=== PATIENT | female | born 1965 | race African-American/Black ===

== ENCOUNTER 2016-11-18 07:03 | Emergency (ER) | payer BC, OTHER ==
[~2016-11-18] VITALS: Ht 152.4 cm; Wt 81.7 kg
[~2016-11-18 07:03] MED LIST: BAYER CHEWABLE81 MG PO; DECONGESTANT NA15 ML NS; FLEXERIL PO; HORMONE REPLACEMENT; IBUPROFEN 600600 M1 PO; LIPITOR10 MG; MECLIZINE 25 MG25 M1 PO; MEDROLDOSEPACK PO; NAPROSYN500 MG PO; NORCO 5-325 TA1 EACH PO; VALIUM2 MG PO
[2016-11-18] MEDS ORDERED: PREDNISONE 20 M20 MG PO (08:36)
[2016-11-18] MEDS ORDERED: VALIUM5 MG PO (08:36)
[2016-11-18] MEDS ORDERED: NORCO 5-325 TA1 EACH PO (08:36)
[2016-11-18 08:50] VITALS: BP 137/82
== END 2016-11-18 08:51 | disposition home or self-care (01) ==
LOC: ER 07:03
DX: M43.6 Torticollis (principal); E78.00 Pure hypercholesterolemia, unspecified; Z90.710 Acquired absence of both cervix and uterus

== ENCOUNTER → 2017-01-24 | Outpatient (CLI) | payer BC, OTHER ==
[~2017-01-24] MED LIST changes: +PREDNISONE 20 M20 MG PO; +VALIUM5 MG PO
--- NOTE | ~2017-01-24 | EKG ---
[place] [address] [facility] [place] [address] ELECTROCARDIOGRAM REPORT Name: VALERIECLAY WISDOM Room #: REG CLI [facility]#: [id number] Admission: 01/24/17 Attend Phys: Last Arce MD Discharge: Date of : 65 Report #: [id number] THIS REPORT FOR: //name// [facility] Test Date: 2017-01-24 Test Time: 14:33:35 Pat Name: CLAY PADILLA Department: Room: Gender: F National Investigative Producer: Pranav PERKINS : 1965 Requested By: Last Arce Order Number: [id number] MD: Perry Jarquin Measurements Intervals [place] Rate: 62 P: 51 WI: 175 QRS: -6 QRSD: 107 T: 35 QT: 420 QTc: 427 Interpretive Statements Sinus rhythm Consider right atrial enlargement Right ventricular conduction delay Compared to ECG 07/27/2015 21:40:48 no significant change was found Electronically Signed On 01-25-2017 8:22:08 CDT by Perry Jarquin [email or web address] <ELECTRONICALLY SIGNED> By: Perry Jarquin MD, [facility] 01/25/1722 1433 143 [place] Jarquin MD, [facility] /EPI
[2017-01-24 14:25] LABS: CALCIUM 9.1 mg/dL (8.5-10.1); CREATININE 0.6 mg/dL (0.6-1.0)
== END ==
LOC: CV 13:49
PROVIDERS: Anesthesiology
DX: Z01.818 Encounter for other preprocedural examination (principal); I10 Essential (primary) hypertension

== ENCOUNTER 2017-03-30 18:34 | Emergency (ER) | payer BC, OTHER ==
[~2017-03-30] VITALS: Ht 170.2 cm; Wt 77.1 kg
[2017-03-30 18:34] VITALS: BP 136/98
[2017-03-30] MEDS ORDERED: TRIPLE ANTIBIO1 EACH TP (19:09)
[2017-03-30] MEDS ORDERED: IBUPROFEN 800800 M1 PO (19:10)
[2017-03-30] MEDS ORDERED: KEFLEX500 MG PO (19:10)
== END 2017-03-30 19:50 | disposition home or self-care (01) ==
LOC: ER 18:34
DX: T25.211A Burn of second degree of right ankle, initial encounter (principal); L03.115 Cellulitis of right lower limb; E78.00 Pure hypercholesterolemia, unspecified; Z90.710 Acquired absence of both cervix and uterus; X17.XXXA Contact with hot engines, machinery and tools, initial encounter; Y93.89 Activity, other specified; Y92.89 Other specified places as the place of occurrence of the external cause; Y99.8 Other external cause status

== ENCOUNTER 2017-08-27 19:53 | Emergency (ER) | payer BC, OTHER ==
[~2017-08-27] VITALS: Ht 149.9 cm; Wt 86.2 kg
[~2017-08-27 19:53] MED LIST changes: +IBUPROFEN 800800 M1 PO; +KEFLEX500 MG PO; +TRIPLE ANTIBIO1 EACH TP
[2017-08-27] MEDS ORDERED: KEFLEX500 M1 PO (21:16)
[2017-08-27] MEDS ORDERED: PREDNISONE 20 M20 MG PO (21:16)
[2017-08-27] MEDS ORDERED: DIFLUCAN200 MG PO (21:29)
== END 2017-08-27 21:35 | disposition home or self-care (01) ==
LOC: ER 19:53
DX: S70.362A Insect bite (nonvenomous), left thigh, initial encounter (principal); L03.116 Cellulitis of left lower limb; E78.00 Pure hypercholesterolemia, unspecified; W57.XXXA Bitten or stung by nonvenomous insect and other nonvenomous arthropods, initial encounter; Y93.89 Activity, other specified; Y92.89 Other specified places as the place of occurrence of the external cause; Y99.8 Other external cause status

== ENCOUNTER 2019-02-03 15:31 | Emergency (ER) | payer OTHER ==
[~2019-02-03] VITALS: Ht 152.4 cm; Wt 93.0 kg
[~2019-02-03 15:31] MED LIST changes: +DIFLUCAN200 MG PO; +KEFLEX500 M1 PO
[2019-02-03 16:07] LABS: ABSOLUTE NEUTROPHILS 2.7 thou/uL (1.4-8.2); EOSINOPHILS 1.4 % (0.0-3.0); HEMATOCRIT 39.1 % (37.0-47.0); HEMOGLOBIN 13.2 gm/dL (12.0-15.0); MCH 30.5 pg (26.0-34.0); MCHC 33.8 g/dL (28.0-37.0); MCV 90.2 fL (80.0-100.0); PLATELET COUNT 355 thou/uL (150-400); POLYS 46.6 % (36.0-66.0); RBC 4.34 mil/uL (4.20-5.00); RDW 13.5 % (10.5-14.5); WBC 5.9 thou/uL (4.0-11.0)
[2019-02-03 16:11] LABS: ANION GAP 7 mmol/L (7-16); BUN 10 mg/dL (7-18); CALCIUM 9.1 mg/dL (8.5-10.1); CHLORIDE 107 mmol/L (98-107); CO2 28 mmol/L (21-32); CREATININE 0.8 mg/dL (0.6-1.0); GLUCOSE 106 mg/dL (74-106); POTASSIUM 3.3 mmol/L (3.5-5.1); SODIUM 142 mmol/L (136-145)
[2019-02-03 16:19] LABS: TROPONIN-I <0.06 ng/mL (<0.06)
[2019-02-03 17:24] VITALS: BP 168/97
--- NOTE | 2019-02-04 07:36 | EKG ---
[place] [address] [facility] [place] [address] ELECTROCARDIOGRAM REPORT Name: VALERIECLAY WISDOM Room #: DEP [facility]#: [id number] ������������������ Admission: 02/03/19 ������������������ Attend Phys: Discharge: 02/03/19 ������������������ Date of : 65 Report #: [id number] ����������������������������������������������������������������� [id number] THIS REPORT FOR: //name// [facility] ED Test Date: 2019-02-03 Test Time: 15:35:07 Pat Name: CLAY PADILLA Department: Room: Gender: F Fbi Profiler: : 1965 Requested By: Alvin Willingham Order Number: [id number] MD: [place] Jarquin Measurements Intervals [place] Rate: 72 P: 55 [place]: 174 QRS: -4 QRSD: 107 T: 40 QT: 426 QTc: 467 Interpretive Statements Sinus rhythm RSR' in V1 or V2, right VCD Nonspecific T wave abnormality Compared to ECG 01/24/2017 14:33:35 Nonspecific T wave abnormality is now present Electronically Signed On 02-04-2019 7:36:12 CDT by [place] Jarquin [email or web address] ��������������������������������������������� <ELECTRONICALLY SIGNED> ���������������������������������������� By: [place] Jarquin MD, [facility] ��������������������������������������������� 02/04/19 0736 1535 1535 [place] Jarquin MD, [facility] /EPI
== END 2019-02-03 17:24 | disposition home or self-care (01) ==
LOC: ER 15:31
PROVIDERS: Emergency Medicine
DX: R07.89 Other chest pain (principal); M54.2 Cervicalgia; R06.02 Shortness of breath; I10 Essential (primary) hypertension; E78.00 Pure hypercholesterolemia, unspecified; Z90.710 Acquired absence of both cervix and uterus

== ENCOUNTER 2019-05-27 11:07 | Emergency (ER) | payer OTHER ==
[~2019-05-27] VITALS: Ht 152.4 cm; Wt 90.7 kg
[2019-05-27 12:59] LABS: ABSOLUTE NEUTROPHILS 3.3 thou/uL (1.4-8.2); BASOPHILS 0.7 % (0.0-2.0); EOSINOPHILS 0.8 % (0.0-3.0); HEMATOCRIT 39.9 % (37.0-47.0); HEMOGLOBIN 13.2 gm/dL (12.0-15.0); LYMPHOCYTES 37.6 % (24.0-44.0); MCH 30.1 pg (26.0-34.0); MCHC 33.1 g/dL (28.0-37.0); MONOCYTES 6.4 % (1.0-8.0); PLATELET COUNT 355 thou/uL (150-400); POLYS 54.5 % (36.0-66.0); RBC 4.39 mil/uL (4.20-5.00); RDW 13.3 % (10.5-14.5)
[2019-05-27 13:08] LABS: ANION GAP 7 mmol/L (7-16); BUN 11 mg/dL (7-18); CALCIUM 9.1 mg/dL (8.5-10.1); CHLORIDE 104 mmol/L (98-107); CO2 30 mmol/L (21-32); CREATININE 0.7 mg/dL (0.6-1.0); GLUCOSE 96 mg/dL (74-106); POTASSIUM 3.6 mmol/L (3.5-5.1); SODIUM 141 mmol/L (136-145)
[2019-05-27 13:18] LABS: ALBUMIN 3.9 g/dL (3.4-5.0); SGOT 19 U/L (15-37); SGPT 22 U/L (30-65); TOTAL BILIRUBIN 0.3 mg/dL (<0.1-1.0); TOTAL PROTEIN 7.7 g/dL (6.4-8.2); TROPONIN-I <0.06 ng/mL (<0.06)
--- NOTE | 2019-05-27 15:46 | EKG ---
[place] [address] [facility] [place] [address] [place] [address] ELECTROCARDIOGRAM REPORT Name: CLAY PADILLA Room #: REG [facility]#: [id number] Admission: 05/27/19 Attend Phys: Discharge: Date of : 65 Report #: [id number] THIS REPORT FOR: //name// [facility] ED Test Date: 2019-05-27 Test Time: 11:54:10 Pat Name: CLAY PADILLA Department: Room: Gender: F Coke Crusher Operator: CALISTA : 1965 Requested By: Vlad Ibarra Order Number: [id number] MD: Jose John Measurements Intervals [place] Rate: 62 P: 59 AR: 171 QRS: -7 QRSD: 103 T: 45 QT: 405 QTc: 412 Interpretive Statements Sinus rhythm Biatrial enlargement ST elev, probable normal early repol pattern Baseline wander in lead(s) II,III,aVF Compared to ECG 02/03/2019 15:35:07 Electronically Signed On 05-27-2019 15:45:57 CDT by Jose John [email or web address] <ELECTRONICALLY SIGNED> By: Jose John MD 05/27/19 1545 1154 1154 Jose John MD /EPI
[2019-05-27 17:21] VITALS: BP 122/87
== END 2019-05-27 17:35 | disposition home or self-care (01) ==
LOC: ER 11:07
PROVIDERS: Physician Assistant
DX: E07.9 Disorder of thyroid, unspecified (principal); J98.59 Other diseases of mediastinum, not elsewhere classified; R07.0 Pain in throat; R49.9 Unspecified voice and resonance disorder; E78.00 Pure hypercholesterolemia, unspecified; Z90.710 Acquired absence of both cervix and uterus

== ENCOUNTER → 2019-06-02 | Outpatient (CLI) | payer OTHER ==
[~2019-06-02] MED LIST changes: +LIPITOR40 MG PO; +LISINOPRIL-HCT1 EACH PO; +ULTRAM 50MG TAB50 MG PO
--- NOTE | 2019-06-06 11:07 | PATH ---
[facility] [place] [address] PATHOLOGY RPT PROCEDURE Name: CLAY PADILLA Room #: REG [facility]..#: [id number] Admission: 06/02/19 Date of : 65 Discharge: Report #: [id number] Path Case #: [id number] Note [facility] Accession Number: [id number] TESTS RESULT FLAG UNITS REF RANGE LAB Clinician Provided Cytology Information No. of containers..01 Other (Miscellaneous) Source: RT THYROID DIAGNOSIS: 02 RIGHT THYROID, FINE NEEDLE ASPIRATION NEGATIVE FOR MALIGNANT EPITHELIAL CELLS. BETHESDA CATEGORY II. SPECIMEN CONSISTS OF ABUNDANT GROUPS OF FOLLICULAR CELLS,FEW HEMOSIDERIN-LADEN MACROPHAGES AND SCANT COLLOID. THE PATTERN IS COMPATIBLE WITH AN ADENOMATOID NODULE. THIS INTERPRETATION INCLUDES EVALUATION OF A CELL BLOCK. NEGATIVE FOR NUCLEAR FEATURES OF PAPILLARY THYROID CARCINOMA. Comment: Examination of the smears shows a moderately cellular aspirate with numerous macrofollicles, scant colloid and a few macrophages. Occasional groups of lymphocytes are noted as well. Overall features are suggestive of an adenomatoid nodule; differential diagnosis includes a macrofollicular adenoma. Please note sample may not be regional sales representative. Correlate clinically and follow-up as indicated. Dr. Yue Ochoa has seen regional sales representative slides of this case and concurs with my diagnosis. Pathologist ICD10: 02 E04.1 Signed out by: Elizabeth Conti MD, Pathologist NPI- [id number] Performed by: Geraldine Carlin, Solidworks Mechanical Designer ([facility]) Ramírez Luo, Solidworks Mechanical Designer ([facility]) Gross description: 01 18ML, RED, CLOUDY /LCS 08/19/1840 0000 Local FLAG LEGEND: L-Low Normal,H-High Normal,LL-Alert Low,HH-Alert High <-Panic Low,>-Panic High,A-Abnormal,AA-Critical Abnormal Performed at: [facility] [address] [place] [address] Yobani Gracia MD, [address] [address] PATHOLOGY RPT PROCEDURE Name: CLAY PADILLA Room #: REG JORGE [facility]#: [id number] Admission: 06/02/19 Date of : 65 Discharge: Report #: [id number] Path Case #: [id number] 02 [facility] [place] [address] [facility], [place] [address] Elizabeth Conti MD, Specimen Comment: A courtesy copy of this report has been sent to Specimen Comment: [phone], . Specimen Comment: Report sent to / DR LUCIA Performed at: 01 [facility] [place] [id number] [facility] [address], [place], [place] [id number] MD Yobani Gracia MD Phone: [phone]
--- NOTE | 2019-06-26 09:10 | PATH ---
[facility] [place] [address] PATHOLOGY RPT PROCEDURE Name: CLAY PADILLA Room #: REG JORGE Smith.#: [id number] Admission: 06/02/19 Date of : 65 Discharge: Report #: [id number] Path Case #: [id number] Note [facility] Accession Number: [id number] TESTS RESULT FLAG UNITS REF RANGE LAB Source: THYROID DIAGNOSIS: 02 LEFT THYROID, FINE NEEDLE ASPIRATION INCONCLUSIVE. BETHESDA CATEGORY III. FOLLICULAR LESION OF UNDETERMINED SIGNIFICANCE. SPECIMEN CONSISTS OF ABUNDANT FOLLICULAR CELLS (FEW WITH HURTHLE CELL FEATURES) AND WITH SCANT DENSE COLLOID. THE DIFFERENTIAL DIAGNOSIS INCLUDES CELLULAR ADENOMATOID NODULE VERSUS A FOLLICULAR NEOPLASM. THIS INTERPRETATION INCLUDES EVALUATION OF A CELL BLOCK. NEGATIVE FOR NUCLEAR FEATURES OF PAPILLARY THYROID CARCINOMA. Comment: Examination shows numerous groups of thyroid follicular cells in macrofollicles, few microfollicles, abundant hemosiderin laden macrophages along with dense colloid. In addition, there a several follicular cells with Hurthle cell features. Overall, findings maybe suggestive of an adenomatoid nodule with or without Elizabeth's thyroiditis or a partially sampled follicular neoplasm or a Hurthle cell neoplasm. Nuclear features of papillary thyroid carcinoma are not seen. The RNA retain vial is sent for molecular analysis and the results of this will be issued in an addendum. Please note sample may not be entirely sales representative electric service; correlate clinically and follow-up as indicated. This case was coreviewed by Dr. Yue Ochoa who concurs with my diagnosis. Pathologist ICD10: 02 R89.6 Addendum: 02 Special studies report received from [employer] [address] [place] [address], on case [id number], labeled with their number [id number], dated 06/25/2019. . RESULTS SUMMARY Nodule Cytopathology ThyGeNEXT ThyraMIR Left Thyroid FNA AUS/FLUS (B-III) No mutations Negative Detected . INTERPRETATION AND RISK ASSESSMENT Left Thyroid FNA Cytology Dx B-III ThyGeNEXT No Mutations Detected ThyraMIR Negative 5% Risk of Malignancy . *Risk assessment is based on disease prevalence [place] [address] PATHOLOGY RPT PROCEDURE Name: CLAY PADILLA Room #: REG CL[facility]com [facility]#: [id number] Admission: 06/02/19 Date of : 65 Discharge: Report #: [id number] Path Case #: [id number] diagnosis, mutational changes, microRNA expression, clinical experience, submitted manuscript and associated wire photo operator news/platform presentation "The Utility of Combined Mutations and microRNA Expression Profiling in Assessing Cancer Risk in Thyroid Nodules", LES Annual Meeting, May 2017 in addition to clinical validation(1)(See Test Result Interpretation section) . TEST RESULT INTERPRETATION . Left Thyroid FNA . Nodule is very highly likely benign. . Thyroid nodules showing [place] Diagnostic Category III (AUS/FLUS) or [place] Diagnostic Category IV (FN/SFN) with negative ThyGeNEXT and negative ThyraMIR status are highly likely to be benign (91-97% likelihood of being benign) (1,2). . Because thyroid nodular disease can contain multifocal areas of heterogeneous pathology, sampling variation may occasionally result in under diagnosis of existing pathology. All decision factors, including ultrasound results, nodule size, and patient history need to be taken into account when determining treatment. . 1. Lala Adames et al, Molecular testing of David, mRNA and DNA on fine needle aspiration improves the preoperative diagnosis of thyroid nodules with indeterminate cytology, Journal of Clinical Endocrinology and Metabolism, 100(0), February 2015, [id number] 2. Nestor oBlanos and Dayanara Steinberg, The utility of combined mutation analysis and microRNA classification in reclassifying cancer risk of cytologically indeterminate thyroid nodules, Diagnostic Cytopathology. 2018:1-7 . . REGULATORY The ThyGeNEXT Thyroid Oncogene Panel provides PCR-based enrichment from fine-needle aspiration biopsies of thyroid nodules and next-generation sequencing (NGS) DNA and RNA analysis. The DNA analysis interrogates 10 genes relevant to thyroid carcinoma, including BRAF, TERT, ALK, RET, PTEN, HRAS, KRAS, NRAS, GNAS, PIK3CA, and 38 RNA fusion transcripts including PAX8/PPARgamma, RET/PTC, and various fusion partners of ALK, RET, BRAF, NTRK, and THADA. Duplicate PCR enrichment was performed using custom oligonucleotide primers with analysis on a MiSeq platform (StyleJam). The analytical sensitivity of this assay is at least 3% for mutant DNA and at least 5% of RNA translocations in a background of wild-type genomic DNA and RNA, respectively. The reporting range is at least 5% for DNA variants, with the exception that the reporting range for BRAF V600E mutation is at least 3%. For the ThyGeNEXT panel, the overall, clinical sensitivity for this analysis is 63% and the specificity is 84% in cases [address] [address] PATHOLOGY RPT PROCEDURE Name: CLAY PADILLA Room #: [facility] [id number] Admission: 06/02/19 Date of : 65 Discharge: Report #: [id number] Path Case #: [id number] with indeterminant cytology. . The ThyraMIR David Medical Office Secretary is a microRNA (David) based discriminator of benign versus malignant disease using mathematical algorithm of 10 specific microRNAs trained and validated using thyroid nodules with known outcome. For the needle aspirates in preservative solution, this assay requires a minimum of RNA equivalent to that for ThyGenX (1000 relative fluorescent units of housekeeping RNA genes). Discrimination can be affected by admixture with blood and normal RNA sources and has been shown to be operative within the range of admixture typically encountered in sampling of thyroid nodule disease. The combined testing platform of ThyGenX with ThyraMIR has a clinical sensitivity of 89% and specificity of 85% for cases with indeterminate cytology diagnosis. (The Journal of Clinical Endocrinology and Metabolism, Volume 100, Issue 7, 17 February 2015, Pages 3181-6618) Laboratory analytical validation of ThyGeNEXT confirmed 100% agreement (95% CI: 99.5 to 100%) for the 5 genes (BRAF, HRAS, KRAS, NRAS, PIK3CA) and 6 fusions (PAX8-PPARG and RET-PTC) interrogated by ThyGenX. Based on this comparison, the performance of ThyGeNEXT is expected to be similar to ThyGenX; however, ThyGeNEXT will provide additional information on gene alterations strongly associated with aggressive forms of differentiated thyroid cancer and/or poor outcome. . Testing performed on material created for microscopic evaluation (cytology slide smears, cell block, or thin prep), depending on cellularity and extractable nuclei acid, may have similar or slightly lower test performance characteristics to that stated above. . . DISCLAIMER: This test was developed and its performance characteristics determined by [facility]. It has not been cleared or approved by the FDA. The laboratory is regulated under CLI as qualified to perform high-complexity testing and is used for clinical purposes. A negative result does not indicate a benign result. This test detects only the mutations listed above, which account for >80% of thyroid cancers. Other, rare mutations, that may be indicative of cancer may not be detected by this test. In addition, about 30% of thyroid cancers have no known genetic alterations and/or mutations. . Interpreted By Electronically verified by Olivia Ontiveros MD Assistant Reading Teacher Date: 14:25:30 EST Olivia Ontiveros MD Pathologist . A complete copy of the report is on file. . [address] [address] PATHOLOGY RPT PROCEDURE Name: KANNANSABINOCLAYDennys WISDOM Room #: REG [facility] [id number] Admission: 06/02/19 Date of : 65 Discharge: Report #: [id number] Path Case #: [id number] Professional and Technical services performed by [employer] [address] [place] [place] [address]. . (IUV:amj 06/25/2019) . AZJ/06/25/2019 Addendum Electronically Signed by Elizabeth Conti MD, Pathologist Signed out by: 02 Elizabeth Conti MD, Pathologist NPI- [id number] Performed by: 01 Geraldine Carlin, Speech Pathologist ([facility]) Ramírez Luo, Speech Pathologist ([facility]) Gross description: 01 19ML, RED, CLOUDY /LCS 08/19/1840 0000 Local FLAG LEGEND: L-Low Normal,H-High Normal,LL-Alert Low,HH-Alert High <-Panic Low,>-Panic High,A-Abnormal,AA-Critical Abnormal Performed at: [address] [place] [address] Yobani Gracia MD, [address] [address] Elizabeth Conti MD, Performed at: [address] [facility], [place], [place] [id number] MD Yobani Gracia MD Phone: [phone]
== END | disposition home or self-care (01) ==
LOC: ULTRA 10:01
DX: E04.1 Nontoxic single thyroid nodule (principal); R89.6 Abnormal cytological findings in specimens from other organs, systems and tissues; Z98.890 Other specified postprocedural states; Z79.899 Other long term (current) drug therapy

== ENCOUNTER 2019-06-03 11:28 | Emergency (ER) | payer OTHER ==
[~2019-06-03] VITALS: Ht 152.4 cm; Wt 97.5 kg
[~2019-06-03 11:28] MED LIST changes: -LIPITOR40 MG PO; -LISINOPRIL-HCT1 EACH PO; -ULTRAM 50MG TAB50 MG PO
[2019-06-03] MEDS ORDERED: LISINOPRIL-HCT1 EACH PO (11:45)
[2019-06-03] MEDS ORDERED: LIPITOR40 MG PO (11:45)
[2019-06-03 12:44] LABS: ABSOLUTE NEUTROPHILS 2.4 thou/uL (1.4-8.2); BASOPHILS 0.9 % (0.0-2.0); HEMATOCRIT 38.4 % (37.0-47.0); HEMOGLOBIN 12.7 gm/dL (12.0-15.0); MCH 30.4 pg (26.0-34.0); MONOCYTES 5.8 % (1.0-8.0); PLATELET COUNT 349 thou/uL (150-400); POLYS 47.3 % (36.0-66.0); RBC 4.17 mil/uL (4.20-5.00); RDW 12.8 % (10.5-14.5)
[2019-06-03 12:44] LABS: URINE BILIRUBIN NEGATIVE (Negative); URINE BLOOD NEGATIVE (Negative); URINE CLARITY CLEAR; URINE COLOR YELLOW; URINE GLUCOSE-RANDOM* NEGATIVE (Negative); URINE KETONES NEGATIVE (Negative); URINE LEUKOCYTES-REFLEX NEGATIVE (Negative); URINE NITRITE-REFLEX NEGATIVE (Negative); URINE PROTEIN (DIPSTICK) NEGATIVE (Negative); URINE UROBILINOGEN 0.2 E.U./dl (0.2-1.0)
[2019-06-03 12:53] LABS: CALCIUM 9.4 mg/dL (8.5-10.1); CREATININE 0.7 mg/dL (0.6-1.0); POTASSIUM 3.6 mmol/L (3.5-5.1)
[2019-06-03 13:00] LABS: ALBUMIN 3.8 g/dL (3.4-5.0); TOTAL BILIRUBIN 0.3 mg/dL (<0.1-1.0); TOTAL PROTEIN 7.6 g/dL (6.4-8.2)
[2019-06-03] MEDS ORDERED: ULTRAM 50MG TAB50 MG PO (16:30)
[2019-06-03 16:42] VITALS: BP 150/77
== END 2019-06-03 16:53 | disposition home or self-care (01) ==
LOC: ER 11:28
PROVIDERS: Emergency Medicine
DX: R10.2 Pelvic and perineal pain (principal); R93.5 Abnormal findings on diagnostic imaging of other abdominal regions, including retroperitoneum; E78.00 Pure hypercholesterolemia, unspecified; Z90.710 Acquired absence of both cervix and uterus

== ENCOUNTER 2019-08-05 17:22 | Emergency (ER) | payer OTHER ==
[~2019-08-05] VITALS: Ht 152.4 cm; Wt 86.2 kg
[~2019-08-05 17:22] MED LIST changes: +LIPITOR40 MG PO; +LISINOPRIL-HCT1 EACH PO; +ULTRAM 50MG TAB50 MG PO
[2019-08-05 17:44] VITALS: BP 145/82
[2019-08-05] MEDS ORDERED: SYNTHROID125 MC1 PO (17:50)
[2019-08-05] MEDS ORDERED: ULTRAM 50MG TAB50 MG PO (18:33)
== END 2019-08-05 19:03 | disposition home or self-care (01) ==
LOC: ER 17:22
DX: S86.812A Strain of other muscle(s) and tendon(s) at lower leg level, left leg, initial encounter (principal); I10 Essential (primary) hypertension; E78.00 Pure hypercholesterolemia, unspecified; Z90.710 Acquired absence of both cervix and uterus; Z90.49 Acquired absence of other specified parts of digestive tract; X50.9XXA Other and unspecified overexertion or strenuous movements or postures, initial encounter; Y93.89 Activity, other specified; Y92.89 Other specified places as the place of occurrence of the external cause; Y99.8 Other external cause status

== ENCOUNTER 2019-09-16 05:48 | Day surgery (SDC) | payer OTHER ==
[~2019-09-16] VITALS: Ht 5 cm; Wt 98.0 kg
--- NOTE | ~2019-09-16 | O ---
[facility] [place] [address] OPERATIVE REPORT Name: VALERIECLAY Room #: DEP [facility]#: [id number] Admission: 09/16/19 Attend Phys: Hallie Smith DO Discharge: 09/16/19 Date of : 65 Report #: [id number] THIS REPORT FOR: //name// CC: Hallie Mayes DATE OF SERVICE: 09/16/2019 PREOPERATIVE DIAGNOSES: 1. Pelvic pain. 2. Prior hysterectomy. POSTOPERATIVE DIAGNOSES: 1. Pelvic pain. 2. Prior hysterectomy. 3. Abdominal adhesions. OPERATIVE PROCEDURE: Diagnostic laparoscopy. SURGEON: Dr. Hallie Smith. ANESTHESIA: General. INTRAVENOUS FLUIDS: 1000 mL. URINE OUTPUT: 300 mL. ESTIMATED BLOOD LOSS: 1 mL. COMPLICATIONS: None. DESCRIPTION OF PROCEDURE: The patient was taken to the operating room where general anesthesia was administered and found to be adequate. She was then prepped and draped in normal sterile fashion in supine position. A Ann catheter was placed in the patient's bladder. The bladder was drained of urine. A 5 mm infraumbilical incision was made with a scalpel. A 5 mm trocar was passed through this incision under direct visualization of laparoscope. The pneumoperitoneum was allowed to accumulate. After approximately 3 liters of carbon dioxide gas was infused and the patient was placed in slight Trendelenburg position, a survey of the patient's abdomen revealed bowel adhered to the patient's anterior abdominal wall directly to the right of the trocar, thick omental adhesions to the abdominal wall to the left of the trocar as well as into the patient's pelvic region. Due to adhesions, there was inability to place further trocar safely to perform a salpingo-oophorectomy on the patient. The ovaries were unable to be visualized at all. Therefore, the procedure was paused and I exited the room to talk with the patient's family. This discussion [facility] [address] [place] [address] OPERATIVE REPORT Name: CLAY PADILLA Room #: DEP [facility]..#: [id number] Admission: 09/16/19 Attend Phys: Hallie Smith DO Discharge: 09/16/19 Date of : 65 Report #: [id number] involved possible laparotomy versus further consultation with General Surgery at a later date to proceed with possible future surgery. The family elected to hold on any type of open procedure and allow time for patient to possibly discuss further surgery with General Surgery as well as myself should her ovaries desire to be removed at that time. I returned to the operating room where sterile protocol was again resumed. Pictures were obtained. The pneumoperitoneum was then allowed to escape. The trocar was removed from the patient's abdomen along with the camera and the incision was closed with 4-0 Monocryl in an interrupted fashion. The Ann was removed from the patient's bladder. The patient tolerated the procedure well. Sponge, lap and needle counts were reported as correct and the patient was then taken to the recovery room in stable condition. By: 0917 1017 Hallie Smith DO /nt
[~2019-09-16 05:48] MED LIST changes: +OYSCO 500+D TA1 EACH PO; +PANTOPRAZOLE SO40 M1 PO; +SYNTHROID125 MC1 PO; +SYNTHROID150 MCG PO
[2019-09-16 06:49] LABS: CALCIUM 8.5 mg/dL (8.5-10.1); CREATININE 0.8 mg/dL (0.6-1.0); POTASSIUM 3.1 mmol/L (3.5-5.1)
[2019-09-16 07:05] VITALS: BP 129/82
[2019-09-16] MEDS ORDERED: IBUPROFEN 600600 M1 PO (08:45)
[2019-09-16] MEDS ORDERED: NORCO 5-325 TA1 EAC1 PO (08:45)
[2019-09-16 09:13] VITALS: BP 129/82
== END 2019-09-16 09:35 | disposition home or self-care (01) ==
LOC: OR 05:48 → TBA 05:50 → OR 09:35
PROVIDERS: Obstetrics & Gynecology
DX: R10.2 Pelvic and perineal pain (principal); K66.0 Peritoneal adhesions (postprocedural) (postinfection); I10 Essential (primary) hypertension; E78.5 Hyperlipidemia, unspecified; E78.00 Pure hypercholesterolemia, unspecified; E07.9 Disorder of thyroid, unspecified; K21.9 Gastro-esophageal reflux disease without esophagitis; Z98.890 Other specified postprocedural states; Z79.899 Other long term (current) drug therapy; Z90.710 Acquired absence of both cervix and uterus
CPT/HCPCS: 50010; 50101; 50249; 50386; 50400; 50455; 50555; 50558; 50962; 51687; 53307; 54118; 56526; 62110; 62900; 65130; 70005

== ENCOUNTER → 2020-04-02 | Outpatient (CLI) | payer OTHER ==
[~2020-04-02] MED LIST changes: +NORCO 5-325 TA1 EAC1 PO
== END ==
LOC: CAT 10:57
PROVIDERS: ATTEND Neuromusculoskeletal Medicine & OMM
DX: Z13.6 Encounter for screening for cardiovascular disorders (principal); I25.10 Atherosclerotic heart disease of native coronary artery without angina pectoris; E78.00 Pure hypercholesterolemia, unspecified

== ENCOUNTER 2020-04-21 21:31 | Emergency (ER) | payer OTHER ==
[~2020-04-21] VITALS: Ht 152.4 cm; Wt 93.0 kg
[2020-04-21] MEDS ORDERED: REPATHA PU420 MG/3.5 SUBQ (22:01)
[2020-04-22 00:33] LABS: CALCIUM 8.5 mg/dL (8.5-10.1); CREATININE 0.8 mg/dL (0.6-1.0); POTASSIUM 3.7 mmol/L (3.5-5.1)
[2020-04-22 00:39] LABS: ABSOLUTE NEUTROPHILS 4.4 thou/uL (1.4-8.2); BASOPHILS 0.2 % (0.0-2.0); HEMATOCRIT 36.2 % (37.0-47.0); HEMOGLOBIN 12.2 gm/dL (12.0-15.0); LYMPHOCYTES 18.3 % (24.0-44.0); MCH 30.9 pg (26.0-34.0); MCHC 33.8 g/dL (28.0-37.0); MCV 91.4 fL (80.0-100.0); MONOCYTES 6.3 % (1.0-8.0); PLATELET COUNT 313 thou/uL (150-400); POLYS 75.2 % (36.0-66.0); RBC 3.96 mil/uL (4.20-5.00); RDW 13.3 % (10.5-14.5); WBC 5.8 thou/uL (4.0-11.0)
[2020-04-22 00:48] LABS: URINE BILIRUBIN NEGATIVE (Negative); URINE BLOOD TRACE (Negative); URINE CLARITY CLEAR; URINE COLOR YELLOW; URINE GLUCOSE-RANDOM* NEGATIVE (Negative); URINE KETONES NEGATIVE (Negative); URINE LEUKOCYTES-REFLEX NEGATIVE (Negative); URINE NITRITE-REFLEX NEGATIVE (Negative); URINE PROTEIN (DIPSTICK) NEGATIVE (Negative); URINE SPECIFIC GRAVITY 1.015 (1.005-1.035); URINE UROBILINOGEN 0.2 E.U./dl (0.2-1.0)
[2020-04-22 01:44] VITALS: BP 132/82
== END 2020-04-22 01:50 | disposition home or self-care (01) ==
LOC: ER 21:31
PROVIDERS: Emergency Medicine
DX: R50.9 Fever, unspecified (principal); R53.83 Other fatigue; R51 Headache; H92.01 Otalgia, right ear; I10 Essential (primary) hypertension; E78.5 Hyperlipidemia, unspecified; Z90.89 Acquired absence of other organs; Z79.899 Other long term (current) drug therapy; Z20.828 Contact with and (suspected) exposure to other viral communicable diseases

== ENCOUNTER 2020-05-14 17:22 | Emergency (ER) | payer OTHER ==
[~2020-05-14] VITALS: Ht 152.4 cm; Wt 90.7 kg
[~2020-05-14 17:22] MED LIST changes: +REPATHA PU420 MG/3.5 SUBQ
[2020-05-14 20:39] VITALS: BP 156/83
== END 2020-05-14 20:39 | disposition home or self-care (01) ==
LOC: ER 17:22
DX: T78.40XA Allergy, unspecified, initial encounter (principal); I10 Essential (primary) hypertension; E78.5 Hyperlipidemia, unspecified; Z90.89 Acquired absence of other organs; Z79.899 Other long term (current) drug therapy; Y92.89 Other specified places as the place of occurrence of the external cause

== ENCOUNTER → 2020-05-20 | Outpatient (CLI) | payer OTHER | LOC: SJCVCIMAG 09:39 | PROVIDERS: ATTEND Internal Medicine | DX: I10 Essential (primary) hypertension (principal); R00.0 Tachycardia, unspecified; E78.00 Pure hypercholesterolemia, unspecified ==

== ENCOUNTER 2020-07-07 18:27 | Emergency (ER) | payer OTHER ==
[~2020-07-07] VITALS: Ht 152.4 cm; Wt 90.7 kg
[2020-07-07] MEDS ORDERED: NORVASC5 M1 PO (19:35)
[2020-07-07] MEDS ORDERED: hormone replacement SUBLING (19:36)
[2020-07-07 19:44] LABS: HEMOGLOBIN 12.4 gm/dL (12.0-15.0); MCH 30.7 pg (26.0-34.0); MCHC 33.6 g/dL (28.0-37.0); MCV 91.6 fL (80.0-100.0); PLATELET COUNT 364 thou/uL (150-400); RBC 4.04 mil/uL (4.20-5.00); RDW 13.3 % (10.5-14.5)
[2020-07-07 19:54] LABS: ANION GAP 8 mmol/L (7-16); BUN 11 mg/dL (7-18); CALCIUM 8.7 mg/dL (8.5-10.1); CHLORIDE 101 mmol/L (98-107); CO2 27 mmol/L (21-32); CREATININE 0.8 mg/dL (0.6-1.0); GLUCOSE 95 mg/dL (74-106); SODIUM 136 mmol/L (136-145)
[2020-07-07 20:04] LABS: ALBUMIN 3.7 g/dL (3.4-5.0); POTASSIUM 4.5 mmol/L (3.5-5.1); SGOT 52 U/L (15-37); SGPT 30 U/L (30-65); TOTAL BILIRUBIN 0.5 mg/dL (0.2-1.0); TOTAL PROTEIN 7.9 g/dL (6.4-8.2); TROPONIN-I <0.06 ng/mL (<0.06)
[2020-07-07 20:10] LABS: ABSOLUTE NEUTROPHILS 3.2 thou/uL (1.4-8.2)
[2020-07-07] MEDS ORDERED: GUAIFEN-CODEINE10 ML PO (22:53)
[2020-07-07 23:05] VITALS: BP 155/100
--- NOTE | 2020-07-08 07:27 | EKG ---
[facility] [place] [address] ELECTROCARDIOGRAM REPORT Name: MATTHEWSHARONCLAY Room #: DEP [facility]#: [id number] Admission: 07/07/20 Attend Phys: Discharge: 07/07/20 Date of : 65 Report #: [id number] THIS REPORT FOR: cc: Austyn Mayes Steven F. DO Santiago, Patrick MD [facility] THIS REPORT FOR: //name// [facility] ED Test Date: 2020-07-07 Test Time: 18:39:39 Pat Name: CLAY PADILLA Department: Room: Gender: F Pharmacology Professor: IND[place] : 1965 Requested By: Fidel Luis Order Number: [id number] MD: Declan Frost Measurements Intervals [place] Rate: 79 P: 58 [place]: 164 QRS: 8 QRSD: 98 T: 67 QT: 380 QTc: 436 Interpretive Statements Sinus rhythm LAE, consider biatrial enlargement RSR' in V1 or V2, right VCD or RVH Compared to ECG 05/27/2019 11:54:10 Right ventricular hypertrophy now present RSR' in V1 or V2 now present Electronically Signed On 07-08-2020 7:26:54 DEPARTMENT CLERK by Declan Frost [email or web address] <ELECTRONICALLY SIGNED> By: Declan Frost MD, FACC 07/08/20 0726 38 38 Declan Frost MD, FAC /EPI
== END 2020-07-07 23:25 | disposition home or self-care (01) ==
LOC: ER 18:27
PROVIDERS: Emergency Medicine
DX: U07.1 COVID-19 (principal); J06.9 Acute upper respiratory infection, unspecified; E78.5 Hyperlipidemia, unspecified; I10 Essential (primary) hypertension; Z90.711 Acquired absence of uterus with remaining cervical stump; E78.00 Pure hypercholesterolemia, unspecified; Z90.89 Acquired absence of other organs; Z98.890 Other specified postprocedural states; Z79.899 Other long term (current) drug therapy

== ENCOUNTER 2021-10-02 16:57 | Emergency (ER) | payer OTHER ==
[~2021-10-02] VITALS: Ht 152.4 cm; Wt 90.7 kg
[~2021-10-02 16:57] MED LIST changes: +GUAIFEN-CODEINE10 ML PO; +NORVASC5 M1 PO; +hormone replacement SUBLING
[2021-10-02 18:34] VITALS: BP 134/88
== END 2021-10-02 18:34 | disposition home or self-care (01) ==
LOC: ER 16:57
DX: S06.0X9A Concussion with loss of consciousness of unspecified duration, initial encounter (principal); I10 Essential (primary) hypertension; E78.00 Pure hypercholesterolemia, unspecified; Z90.89 Acquired absence of other organs; Z79.899 Other long term (current) drug therapy; W22.8XXA Striking against or struck by other objects, initial encounter; Y93.89 Activity, other specified; Y92.89 Other specified places as the place of occurrence of the external cause; Y99.8 Other external cause status

== ENCOUNTER → 2021-10-17 | Outpatient (CLI) | payer OTHER | LOC: CAT 13:48 | PROVIDERS: ATTEND Nurse Practitioner | DX: J04.0 Acute laryngitis (principal); J98.59 Other diseases of mediastinum, not elsewhere classified ==